=== PATIENT | male | born 1965 ===

== ENCOUNTER 2017-06-28 11:46 | Emergency (ER) | payer OTHER ==
[2017-06-28 11:46] VITALS: BMI 30.3
[2017-06-28 12:29] VITALS: BP 125/78; PULSE 58; RESP 16; TEMP 99; O2SAT 98
[2017-06-28] MEDS ORDERED: Sodium Chloride 0.9% 1,000 ML IV STA (12:58)
--- NOTE | 2017-06-28 14:01 | ED PDOC ---
HPI: Male Pain Time Seen by Provider: 06/28/17 12:42 Chief Complaint (Nursing): Male Genitourinary Chief Complaint (Provider): Hematuria History Per: Patient History/Exam Limitations: no limitations Onset/Duration Of Symptoms: Days (x2 weeks) Current Symptoms Are (Timing): Still Present Associated Symptoms: Back Pain (right lower), Other (right groin). denies: Fever, Chills, Urinary Symptoms (dysuria, urgency, frequency) Additional Complaint(s): Stew Still is a 52 year old male, with a past medical history of multiple kidney stones, HTN, diabetes and CHF, who presents to the emergency department complaining of painless hematuria onset for x2 weeks. Patient reports he was evaluated by his PMD, he had a CT scan done which showed a kidney stone on the right side. Patient was prescribed "7 medications" but doesn't know what they are just that he's taking them to help pass the stone. Patient states for the past week he developed right groin and right lower back pain. He reports pain is minimal, and the persistence of hematuria prompted ED visit. He denies any flank pain, dysuria, urgency, frequency, fever, chills or abdominal pain. No further medical complaints. PMD: None provided. Past Medical History Reviewed: Historical Data, Nursing Documentation, Vital Signs Vital Signs: Last Vital Signs Temp 99 F 06/28/17 12:26 Pulse 58 L 06/28/17 12:26 Resp 16 06/28/17 12:26 BP 125/78 06/28/17 12:26 Pulse Ox 98 06/28/17 12:26 - Medical History PMH: CAD, CHF (EF 41%), Diabetes, HTN, Hypercholesterolemia, Kidney Stones (S/P Trasnurethral Removal), Chronic Kidney Disease Denies: HIV - Surgical History Surgical History: Coronary Stent (2 placed in around June 2014) Denies: Pacemaker - Family History Family History: States: No Known Family Hx - Home Medications Home Medications: Ambulatory Orders Medication Instructions Recorded Insulin Detemir [Levemir Flexpen] 18 unit SC BID 06/19/14 Clopidogrel [Plavix] 75 mg PO DAILY 07/11/14 Atorvastatin [Lipitor] 20 mg PO DAILY #0 tab 09/01/14 Metoprolol Succinate [Toprol XL] 25 mg PO DAILY #0 tab 09/01/14 Aspirin [Aspirin EC] 81 mg PO DAILY 12/22/14 Canagliflozin/Metformin HCl 1 tab PO BID 10/06/15 [Invokamet 50-1,000 mg Tablet] Cyclobenzaprine [Cyclobenzaprine 10 mg PO TID PRN #12 tab 11/18/16 HCl] Ciprofloxacin [Cipro] 500 mg PO BID #14 tab 06/28/17 Tamsulosin [Flomax] 0.4 mg PO DAILY #7 cap 06/28/17 - Allergies Allergies/Adverse Reactions: Allergies Allergy/AdvReac Type Severity Reaction Status Date / Time No Known Allergies Allergy Verified 06/28/17 12:25 Review of Systems ROS Statement: Except As Marked, All Systems Reviewed And Found Negative Constitutional: Negative for: Fever, Chills Gastrointestinal: Negative for: Abdominal Pain Genitourinary Male: Positive for: Hematuria, Other (right groin pain). Negative for: Dysuria, Frequency, Incontinence Musculoskeletal: Positive for: Back Pain (lower). Negative for: Other (flank pain) Physical Exam - Reviewed Nursing Documentation Reviewed: Yes Vital Signs Reviewed: Yes - Physical Exam Appears: Positive for: Non-toxic, No Acute Distress Head Exam: Positive for: ATRAUMATIC, NORMAL INSPECTION, NORMOCEPHALIC Skin: Positive for: Normal Color, Warm, Dry Eye Exam: Positive for: Normal appearance Neck: Positive for: Painless ROM, Supple Cardiovascular/Chest: Positive for: Regular Rate, Rhythm. Negative for: Murmur Respiratory: Positive for: Normal Breath Sounds. Negative for: Respiratory Distress Gastrointestinal/Abdominal: Positive for: Normal Exam, Soft. Negative for: Tenderness (to deep palpation), Rebound Back: Positive for: Normal Inspection. Negative for: L CVA Tenderness, R CVA Tenderness Extremity: Positive for: Normal ROM (upper and lower extremities). Negative for : Deformity, Swelling Neurologic/Psych: Positive for: Alert, Oriented. Negative for: Motor/Sensory Deficits - Laboratory Results Result Diagrams: 06/28/17 14:57 06/28/17 14:57 - ECG O2 Sat by Pulse Oximetry: 98 (RA) Pulse Ox Interpretation: Normal Medical Decision Making Medical Decision Making: Initial Impression: Hematuria Initial Plan: --CMP --CBC w/ differential --PTT --PT --Sodium Chloride 1,000 ml IV 1,000 mls/hr --Blood culture --Urine C&S --KUB [Abdomen (Flat Plate) 1view] [RAD] --Urinalysis --Renal [US] --Reevaluation 06/02/2017 Abdomen/Pelvis CT FINDINGS: LOWER THORAX: Unremarkable. LIVER: Unremarkable. No gross lesion or ductal dilatation. GALLBLADDER AND BILE DUCTS: Unremarkable. PANCREAS: Unremarkable. No gross lesion or ductal dilatation. SPLEEN: Unremarkable. ADRENALS: Bilateral moderate renal hypertrophy again evident, not significantly changed. KIDNEYS AND URETERS: No obstructive uropathy is identified bilaterally with nonspecific limited streaky perinephric changes again evident bilaterally. A nonobstructive intrarenal calculus is slightly larger at the lower pole right kidney now measures 6.6 cm greatest dimension compared to 6.0 cm previously. An interval punctate midpole left intrarenal calculus identified, also nonobstructive. VASCULATURE: A retro aortic left renal vein again evident. BOWEL: Lack of oral contrast limits evaluation of the gastrointestinal tract with the stomach decompressed. No bowel obstruction is appreciated. Moderate fecal loading seen throughout the majority colon with left colonic diverticular changes again identified, concentrated at the sigmoid segment, without diverticulitis pattern evident. APPENDIX: Unremarkable. Normal appendix. PERITONEUM: Unremarkable. No free fluid. No free air. LYMPH NODES: Unremarkable. No enlarged lymph nodes. BLADDER: Unremarkable. REPRODUCTIVE: Enlarged prostate gland is again evident with central calcifications. BONES: No acute fracture. OTHER FINDINGS: None. IMPRESSION: No obstructive uropathy is identified bilaterally although a 6.6 mm intrarenal calculus is identified at the lower pole right kidney slightly larger in the interval with a new punctate intrarenal calculus identified at the midpole left kidney. Both are nonobstructive. Stable low nonspecific limited perinephric streaky changes reiterated. Lack of contrast agents limits further evaluation of the abdominal and pelvic viscera however no definitive acute abdominal findings are otherwise evident at this time. Sigmoid diverticular changes are stable with limited descending colonic diverticular changes also evident once again. Bilateral adrenal hypertrophy again evident. 13:45 -Case discussed with Dr. Mackay, who reviewed CT scans from 06/02/17 and recommends KUB and to contact patient's urologist. 14:43 Renal Ultrasound FINDINGS: RIGHT KIDNEY: Measures: 12.9 cm. Normal in size, contour and echogenicity. There is a 5 x 9 mm stone in the right proximal ureter, mild hydronephrosis and mild dilatation of the proximal ureter. LEFT KIDNEY: Measures: 12.9 cm. Normal in size, contour and echogenicity. There is a 1.4 x 1.0 x 1.5 cm hypoechoic nodule in the upper pole. There is a 7 mm cyst with peripheral calcification in the upper pole and 1.4 cm cyst with eccentric calcification in the interpolar region. There is a presumable 4 mm nonobstructing stone in the interpolar region. OTHER FINDINGS: None. IMPRESSION: 1. 5 x 9 mm stone in the right proximal ureter and mild hydronephrosis and proximal ureteral dilatation. 2. 1.5 cm solid nodule in the upper pole of the left kidney. A dedicated CT scan of the abdomen without and with intravenous contrast with renal protocol is recommended for definitive evaluation. 3. Complicated cyst in the left kidney. 4. Presumable 4 mm nonobstructing stone in the interpolar region of the left kidney. 14:49 Abdomen Flat Plate FINDINGS: The lungs are well inflated and clear. The heart is normal in size. There is a 5 x 6 mm calcification in the right paravertebral region just superior to the right transverse process of L3 vertebral body. BOWEL: Normal. No obstruction. No free air. BONES: Normal. OTHER FINDINGS: None. IMPRESSION: 5 x 6 mm stone in the right proximal ureter. 1539 On re-evaluation, pt. in no distress. Non-toxic. Comfortable and relaxing. Case d/w Michael Victoria NP, pt's primary care provider, who knows pt. very well. Informed of radiologic and lab results. States he will f/u with patient tomorrow. Offered to call urology consult but states his office will set up urology appointment when he visits their office tomorrow. Pt. informed of results and plan and told that stone will not likely pass on its own but he is to f/u with his PCP tomorrow without fail. Pt. agrees to plan and states he will f/u with Julien. D/W Dr. Mackay prior to discharge. ~ Scribe Attestation: Documented by Angel Medrano, acting as a scribe for Anmol Dent PA-C. Provider Scribe Attestation: All medical record entries made by the Scribe were at my direction and personally dictated by me. I have reviewed the chart and agree that the record accurately reflects my personal performance of the history, physical exam, medical decision making, and the department course for this patient. I have also personally directed, reviewed, and agree with the discharge instructions and disposition. Disposition - Clinical Impression Clinical Impression: Nephrolithiasis - Patient ED Disposition Is Patient to be Admitted: No - Disposition Referrals: Omar Chiu [Outside] Michael Victoria, ANN MARIE, TELEMEDICINE PHYSICIAN [Advanced Practice Nurse] - Disposition: Routine/Home Disposition Time: 15:44 Condition: STABLE Additional Instructions: Follow up with Julien's office tomorrow without fail. Return to ED immediately if symptoms worsen. Prescriptions: Ciprofloxacin [Cipro] 500 mg PO BID #14 tab Tamsulosin [Flomax] 0.4 mg PO DAILY #7 cap Instructions: Kidney Stones in Adults Forms: [employer] ([place]), [facility] ED School/Work Excuse Print Language: LUX[place]
--- NOTE | 2017-06-28 14:45 | US ---
PROCEDURE: Ultrasound of the Kidneys HISTORY: R lower back pain, hematuria COMPARISON: CT abdomen and pelvis from 06/02/2017 TECHNIQUE: Grayscale imaging was performed. FINDINGS: RIGHT KIDNEY: Measures: 12.9 cm. Normal in size, contour and echogenicity. There is a 5 x 9 mm stone in the right proximal ureter, mild hydronephrosis and mild dilatation of the proximal ureter. LEFT KIDNEY: Measures: 12.9 cm. Normal in size, contour and echogenicity. There is a 1.4 x 1.0 x 1.5 cm hypoechoic nodule in the upper pole. There is a 7 mm cyst with peripheral calcification in the upper pole and 1.4 cm cyst with eccentric calcification in the interpolar region. There is a presumable 4 mm nonobstructing stone in the interpolar region. OTHER FINDINGS: None. IMPRESSION: 1. 5 x 9 mm stone in the right proximal ureter and mild hydronephrosis and proximal ureteral dilatation. 2. 1.5 cm solid nodule in the upper pole of the left kidney. A dedicated CT scan of the abdomen without and with intravenous contrast with renal protocol is recommended for definitive evaluation. 3. Complicated cyst in the left kidney. 4. Presumable 4 mm nonobstructing stone in the interpolar region of the left kidney.
--- NOTE | 2017-06-28 14:51 | RAD ---
HISTORY: kidney stones COMPARISON: CT abdomen and pelvis from 06/02/2017. FINDINGS: The lungs are well inflated and clear. The heart is normal in size. There is a 5 x 6 mm calcification in the right paravertebral region just superior to the right transverse process of L3 vertebral body. BOWEL: Normal. No obstruction. No free air. BONES: Normal. OTHER FINDINGS: None. IMPRESSION: 5 x 6 mm stone in the right proximal ureter.
[2017-06-28 14:54] LABS: URINE BILIRUBIN NEGATIVE (NEGATIVE); URINE BLOOD MODERATE (NEGATIVE); URINE CLARITY CLOUDY (Clear); URINE COLOR RED (YELLOW); URINE GLUCOSE (UA) >=500 mg/dL (Normal); URINE LEUKOCYTE ESTERASE NEG Leu/uL (Negative); URINE PROTEIN 100 mg/dL (NEGATIVE); URINE UROBILINOGEN 0.2-1.0 mg/dL (0.2-1.0)
[2017-06-28 15:18] LABS: BASO % 0.9 % (0.0-2.0); EOS # 0.2 K/uL (0.0-0.7); EOS % 3.9 % (0.0-4.0); HEMOGLOBIN 15.5 g/dL (12.0-18.0); LYMPH # 2.2 K/uL (1.0-4.3); LYMPH % 41.2 % (20.0-40.0); MEAN CELL VOLUME 88.9 fl (80.0-94.0); MEAN CORPUSCULAR HEMOGLOBIN 29.4 pg (27.0-31.0); MEAN CORPUSCULAR HGB CONC 33.1 g/dL (33.0-37.0); MONO # 0.5 K/uL (0.0-0.8); MONO % 9.4 % (0.0-10.0); NEUT # 2.4 K/uL (1.8-7.0); NEUT % 44.6 % (50.0-75.0); NRBC % 0.1 % (0.0-0.0); RBC 5.28 Mil/uL (4.40-5.90); RED CELL DISTRIBUTION WIDTH 13.9 % (11.5-14.5); WHITE BLOOD COUNT 5.4 K/uL (4.8-10.8)
[2017-06-28 15:21] LABS: ALB/GLOB RATIO 1.2 (1.0-2.1); ALBUMIN 4.4 g/dL (3.5-5.0); ALT/SGPT 42 U/L (21-72); AST/SGOT 28 U/L (17-59); BLOOD UREA NITROGEN 16 mg/dl (9-20); CALCIUM 9.8 mg/dL (8.4-10.2); GFR AFRICAN-AMERICAN > 60; GFR NON-AFRICAN AMERICAN > 60
[2017-06-28 15:29] LABS: PARTIAL THROMBOPLASTIN TIME 33.5 Seconds (25.6-37.1); PROTHROMBIN TIME 10.9 Seconds (9.8-13.1)
== END 2017-06-28 15:53 | disposition home or self-care (01) ==
LOC: H.ER 11:46
DX: N20.2 Calculus of kidney with calculus of ureter (principal); E78.00 Pure hypercholesterolemia, unspecified; I13.0 Hypertensive heart and chronic kidney disease with heart failure and stage 1 through stage 4 chronic kidney disease, or unspecified chronic kidney disease; I25.10 Atherosclerotic heart disease of native coronary artery without angina pectoris; Z79.4 Long term (current) use of insulin; Z79.82 Long term (current) use of aspirin; Z95.5 Presence of coronary angioplasty implant and graft; N28.1 Cyst of kidney, acquired
CPT/HCPCS: 74018; 74022; 76770; 80053; 81003; 85025; 85610; 85730; 87040; 87086; 96360; 96361; 99283; J7040

== ENCOUNTER 2017-06-29 08:37 | Observation (INO) | payer OTHER ==
[2017-06-29 08:38] VITALS: BMI 30.3
[2017-06-29] MEDS ORDERED: Sodium Chloride 0.9% 1,000 ML IV STA (08:57)
--- NOTE | 2017-06-29 08:59 | ED PDOC ---
HPI: Male Pain Time Seen by Provider: 06/29/17 08:41 Chief Complaint (Nursing): Male Genitourinary Chief Complaint (Provider): Right flank pain History Per: Patient History/Exam Limitations: no limitations Onset/Duration Of Symptoms: Days Current Symptoms Are (Timing): Still Present Associated Symptoms: Other (hematuria) Additional Complaint(s): Stew Still is a 52 year old male, with a past medical history of a right sided kidney stone 6-7mm, who presents to the emergency department for right flank pain associated with gross hematuria. Patient was seen in the ED yesterday for the same symptoms. He denies any fever, chills or other medical complaints. PMD: None provided. Past Medical History Reviewed: Historical Data, Nursing Documentation, Vital Signs Vital Signs: Last Vital Signs Temp 97.5 F L 06/29/17 08:41 Pulse 50 L 06/29/17 08:41 Resp 20 06/29/17 08:41 BP 164/92 H 06/29/17 08:41 Pulse Ox 100 06/29/17 08:41 - Medical History PMH: CAD, CHF (EF 41%), Diabetes, HTN, Hypercholesterolemia, Kidney Stones (S/P Trasnurethral Removal), Chronic Kidney Disease Denies: HIV - Surgical History Surgical History: Coronary Stent (2 placed in around June 2014) Denies: Pacemaker - Family History Family History: States: No Known Family Hx - Social History Current smoker - smoking cessation education provided: No Alcohol: None Drugs: Denies - Home Medications Home Medications: Ambulatory Orders Medication Instructions Recorded Aspirin [Aspirin] 325 mg PO DAILY 06/29/17 Atorvastatin [Lipitor] 20 mg PO HS 06/29/17 Canagliflozin/Metformin HCl 1 tab PO BID 06/29/17 [Invokamet 50-1,000 mg Tablet] Insulin Glargine, Recombina 19 unit SC Q12 06/29/17 [Lantus] Metoprolol Succinate [Toprol XL] 25 mg PO DAILY 06/29/17 - Allergies Allergies/Adverse Reactions: Allergies Allergy/AdvReac Type Severity Reaction Status Date / Time No Known Allergies Allergy Verified 06/29/17 08:53 Review of Systems ROS Statement: Except As Marked, All Systems Reviewed And Found Negative Constitutional: Negative for: Fever, Chills Genitourinary Male: Positive for: Hematuria Musculoskeletal: Positive for: Back Pain (right flank) Physical Exam - Reviewed Nursing Documentation Reviewed: Yes Vital Signs Reviewed: Yes - Physical Exam Appears: Positive for: Non-toxic, No Acute Distress Head Exam: Positive for: ATRAUMATIC, NORMAL INSPECTION, NORMOCEPHALIC Skin: Positive for: Normal Color, Warm, Dry Eye Exam: Positive for: Normal appearance Neck: Positive for: Painless ROM Cardiovascular/Chest: Positive for: Regular Rate, Rhythm. Negative for: Murmur Respiratory: Positive for: Normal Breath Sounds. Negative for: Respiratory Distress Gastrointestinal/Abdominal: Positive for: Normal Exam, Soft. Negative for: Tenderness Back: Positive for: R CVA Tenderness (mild) Extremity: Positive for: Normal ROM (on all extremities). Negative for: Deformity, Swelling Neurologic/Psych: Positive for: Alert, Oriented - Laboratory Results Result Diagrams: 06/29/17 09:10 06/29/17 09:10 - ECG O2 Sat by Pulse Oximetry: 100 (RA) Pulse Ox Interpretation: Normal Medical Decision Making Medical Decision Making: Initial Plan: --EKG --CMP --CBC w/ differential --PTT --Chest two views (PA/LAT) [RAD] --Sodium Chloride 1,000 ml IV 100 mls/hr --Toradol 30 mg IVP --Urinalysis --Reevaluation Scribe Attestation: Documented by Angel Medrano, acting as a scribe for Manan Pike MD Provider Scribe Attestation: All medical record entries made by the Scribe were at my direction and personally dictated by me. I have reviewed the chart and agree that the record accurately reflects my personal performance of the history, physical exam, medical decision making, and the department course for this patient. I have also personally directed, reviewed, and agree with the discharge instructions and disposition. Disposition - Clinical Impression Clinical Impression: Kidney stone - Patient ED Disposition Is Patient to be Admitted: Yes - Disposition Disposition Time: 10:45 Condition: FAIR - Pt Status Changed To: Hospital Disposition Of: Observation - POA Present On Arrival: None
[2017-06-29 09:38] LABS: BASO % 0.7 % (0.0-2.0); EOS # 0.3 K/uL (0.0-0.7); EOS % 6.9 % (0.0-4.0); HEMOGLOBIN 15.6 g/dL (12.0-18.0); LYMPH # 2.1 K/uL (1.0-4.3); LYMPH % 44.8 % (20.0-40.0); MEAN CELL VOLUME 88.8 fl (80.0-94.0); MEAN CORPUSCULAR HEMOGLOBIN 29.8 pg (27.0-31.0); MEAN CORPUSCULAR HGB CONC 33.5 g/dL (33.0-37.0); MEAN PLATELET VOLUME 9.1 fl (7.2-11.7); MONO # 0.5 K/uL (0.0-0.8); MONO % 10.4 % (0.0-10.0); NEUT # 1.8 K/uL (1.8-7.0); NEUT % 37.2 % (50.0-75.0); RBC 5.25 Mil/uL (4.40-5.90); RED CELL DISTRIBUTION WIDTH 14.2 % (11.5-14.5); WHITE BLOOD COUNT 4.8 K/uL (4.8-10.8)
[2017-06-29 09:44] LABS: PROTHROMBIN TIME 11.3 Seconds (9.8-13.1)
[2017-06-29 09:54] LABS: ALB/GLOB RATIO 1.1 (1.0-2.1); ALBUMIN 4.2 g/dL (3.5-5.0); ALT/SGPT 41 U/L (21-72); AST/SGOT 28 U/L (17-59); BLOOD UREA NITROGEN 15 mg/dl (9-20); CALCIUM 9.3 mg/dL (8.4-10.2); GFR AFRICAN-AMERICAN > 60; GFR NON-AFRICAN AMERICAN > 60
[2017-06-29] MEDS ORDERED: METFORMIN HCL PO SCH (17:00)
[2017-06-29] MEDS ORDERED: CANAGLIFLOZIN PO SCH (17:00)
[2017-06-29] MEDS: Insulin Detemir 100 Units/ml Inj SC SCH (17:07)
--- NOTE | 2017-06-29 17:18 | CARD ---
APPROVED REPORT EKG Measurement Heart [id number] <Conclusion> Sinus bradycardia Left axis deviation Inferior-posterior infarct, age undetermined Abnormal ECG
[2017-06-29] MEDS: Sodium Chloride 0.9% 1,000 ML IV SCH (21:53)
[2017-06-29 21:59] LABS: SQUAMOUS EPITHIAL < 1 /hpf (0-5); URINE BACTERIA RARE (<OCC); URINE BILIRUBIN NEGATIVE (NEGATIVE); URINE BLOOD LARGE (NEGATIVE); URINE CLARITY SLIGHTY-CLOUDY (Clear); URINE COLOR YELLOW (YELLOW); URINE GLUCOSE (UA) >=500 mg/dL (Normal); URINE LEUKOCYTE ESTERASE NEG Leu/uL (Negative); URINE PROTEIN 30 mg/dL (NEGATIVE); URINE UROBILINOGEN 0.2-1.0 mg/dL (0.2-1.0)
[2017-06-30 06:13] LABS: BASO % 0.8 % (0.0-2.0); EOS # 0.2 K/uL (0.0-0.7); EOS % 4.8 % (0.0-4.0); HEMOGLOBIN 14.9 g/dL (12.0-18.0); LYMPH # 1.7 K/uL (1.0-4.3); LYMPH % 36.1 % (20.0-40.0); MEAN CELL VOLUME 89.3 fl (80.0-94.0); MEAN CORPUSCULAR HGB CONC 33.6 g/dL (33.0-37.0); MEAN PLATELET VOLUME 9.5 fl (7.2-11.7); MONO # 0.5 K/uL (0.0-0.8); MONO % 10.4 % (0.0-10.0); NEUT # 2.2 K/uL (1.8-7.0); NEUT % 47.9 % (50.0-75.0); NRBC % 0.1 % (0.0-0.0); RBC 4.95 Mil/uL (4.40-5.90); RED CELL DISTRIBUTION WIDTH 14.4 % (11.5-14.5); WHITE BLOOD COUNT 4.6 K/uL (4.8-10.8)
[2017-06-30] MEDS: Sodium Chloride 0.9% 1,000 ML IV SCH (06:24)
[2017-06-30 07:06] LABS: ALB/GLOB RATIO 1.1 (1.0-2.1); ALBUMIN 3.9 g/dL (3.5-5.0); ALT/SGPT 31 U/L (21-72); AST/SGOT 39 U/L (17-59); BLOOD UREA NITROGEN 15 mg/dl (9-20); GFR AFRICAN-AMERICAN > 60; GFR NON-AFRICAN AMERICAN > 60
[2017-06-30] MEDS ORDERED: Propofol 10 mg/ml Inj (20 ML) ONE (08:38)
[2017-06-30] MEDS ORDERED: Succinylcholine 200 mg/10 ml Inj IV ONE (08:38)
[2017-06-30] MEDS ORDERED: Midazolam 2 MG/2 ML VIAL ONE (08:38)
[2017-06-30] MEDS: Lactated Ringer's 1,000 ML IV ONE ×2 (08:45→09:55)
[2017-06-30] MEDS ORDERED: Metoprolol Succinate 25 mg XL Tab PO SCH (09:00)
--- NOTE | 2017-06-30 09:13 | CP.PCM.HP ---
History of Present Illness - History of Present Illness History of Present Illness: ptadmitted for worsening hematuria r/t left kidney stone approx 6-7mm. no f/c, n /v/s.bw nad urine noted. pt is for stent today and has been npo. no h/o anesthesia, breathing/bleeding problems Present on Admission - Present on Admission Any Indicators Present on Admission: Yes History of Uncontrolled Diabetes: Yes Review of Systems - Genitourinary Genitourinary: As Per HPI, Flank Pain, Hematuria Past Patient History - Infectious Disease Hx of Infectious Diseases: None - Tetanus Immunizations Tetanus Immunization: Unknown - Past Medical History & Family History Past Medical History?: Yes - Past Social History Alcohol: None Drugs: Denies - CARDIAC Hx Congestive Heart Failure: Yes (EF 41%) Hx Hypercholesterolemia: Yes Hx Hypertension: Yes Hx Pacemaker: No - PULMONARY Hx Respiratory Disorders: No - NEUROLOGICAL Hx Paralysis: No - HEENT Hx HEENT Problems: No - RENAL Hx Chronic Kidney Disease: Yes Hx Kidney Stones: Yes (S/P Trasnurethral Removal) - ENDOCRINE/METABOLIC Hx Endocrine Disorders: Yes (DM) - HEMATOLOGICAL/ONCOLOGICAL Hx Human Immunodeficiency Virus (HIV): No - INTEGUMENTARY Hx Dermatological Problems: No - MUSCULOSKELETAL/RHEUMATOLOGICAL Hx Falls: No - GASTROINTESTINAL Hx Gastrointestinal Disorders: No - GENITOURINARY/GYNECOLOGICAL Hx Genitourinary Disorders: No - PSYCHIATRIC Hx Substance Use: No - SURGICAL HISTORY Hx Coronary Stent: Yes (2 placed in around June 2014) - ANESTHESIA Hx Anesthesia: Yes Hx Anesthesia Reactions: No Hx Malignant Hyperthermia: No Meds Home Medications: Home Medication List Medication Instructions Recorded Confirmed Type Tamsulosin [Flomax] 0.4 mg PO DAILY #7 cap 06/30/17 Rx oxyCODONE/Acetaminophen [Percocet 1 tab PO Q6 PRN #10 tab 06/30/17 Rx 5/325 mg Tab] Allergies/Adverse Reactions: Allergies Allergy/AdvReac Type Severity Reaction Status Date / Time No Known Allergies Allergy Verified 06/29/17 08:53 Physical Exam - Constitutional Appears: Well, Non-toxic, No Acute Distress - Head Exam Head Exam: ATRAUMATIC, NORMAL INSPECTION, NORMOCEPHALIC - Eye Exam Eye Exam: EOMI, Normal appearance, PERRL Pupil Exam: NORMAL ACCOMODATION, PERRL - ENT Exam ENT Exam: Mucous Membranes Moist, Normal Exam - Neck Exam Neck exam: Positive for: Normal Inspection - Respiratory Exam Respiratory Exam: Clear to Auscultation Bilateral, NORMAL BREATHING PATTERN - Cardiovascular Exam Cardiovascular Exam: REGULAR RHYTHM, RRR, +S1, +S2 - GI/Abdominal Exam GI & Abdominal Exam: Normal Bowel Sounds, Soft. absent: Tenderness - Extremities Exam Extremities exam: Positive for: full ROM, normal capillary refill, normal inspection, pedal pulses present - Back Exam Back exam: NORMAL INSPECTION - Neurological Exam Neurological exam: Alert, CN II-XII Intact, Normal Gait, Oriented x3, Reflexes Normal - Psychiatric Exam Psychiatric exam: Normal Affect, Normal Mood - Skin Skin Exam: Dry, Intact, Normal Color, Warm Results - Vital Signs Recent Vital Signs: Last Vital Signs Temp 98.4 F 06/30/17 09:00 Pulse 61 06/30/17 09:00 Resp 18 06/30/17 09:00 BP 121/73 06/30/17 09:00 Pulse Ox 98 06/30/17 09:00 - Labs Result Diagrams: 06/30/17 05:57 06/30/17 05:57 Labs: Laboratory Results - last 24 hr 06/29/17 06/29/17 06/29/17 09:10 09:10 09:10 WBC 4.8 RBC 5.25 Hgb 15.6 Hct 46.6 MCV 88.8 MCH 29.8 MCHC 33.5 RDW 14.2 Plt Count 225 MPV 9.1 Neut % (Auto) 37.2 L Lymph % (Auto) 44.8 H Clare % (Auto) 10.4 H Eos % (Auto) 6.9 H Baso % (Auto) 0.7 Neut # (Auto) 1.8 Lymph # (Auto) 2.1 Clare # (Auto) 0.5 Eos # (Auto) 0.3 Baso # (Auto) 0.0 PT 11.3 INR 1.0 Sodium 143 Potassium 4.6 Chloride 100 Carbon Dioxide 28 Anion Gap 20 BUN 15 Creatinine 0.8 Est GFR ( Amer) > 60 Est GFR (Non-Af Amer) > 60 POC Glucose (mg/dL) Random Glucose 183 H Calcium 9.3 Total Bilirubin 0.5 AST 28 ALT 41 Alkaline Phosphatase 93 Total Protein 8.0 Albumin 4.2 Globulin 3.9 Albumin/Globulin Ratio 1.1 Urine Color Urine Clarity Urine pH Ur Specific [place] Urine Protein Urine Glucose (UA) Urine Ketones Urine Blood Urine Nitrate Urine Bilirubin Urine Urobilinogen Ur Leukocyte Esterase Urine RBC (Auto) Urine Microscopic WBC Ur Squamous Epith Cells Urine Bacteria 06/29/17 06/29/17 06/29/17 12:50 16:24 21:20 WBC RBC Hgb Hct MCV MCH MCHC RDW Plt Count MPV Neut % (Auto) Lymph % (Auto) Clare % (Auto) Eos % (Auto) Baso % (Auto) Neut # (Auto) Lymph # (Auto) Clare # (Auto) Eos # (Auto) Baso # (Auto) PT INR Sodium Potassium Chloride Carbon Dioxide Anion Gap BUN Creatinine Est GFR ( Amer) Est GFR (Non-Af Amer) POC Glucose (mg/dL) 178 H 121 H Random Glucose Calcium Total Bilirubin AST ALT Alkaline Phosphatase Total Protein Albumin Globulin Albumin/Globulin Ratio Urine Color Yellow Urine Clarity Slighty-cloudy Urine pH 6.0 Ur Specific [place] 1.025 Urine Protein 30 Urine Glucose (UA) >=500 Urine Ketones Negative Urine Blood Large Urine Nitrate Negative Urine Bilirubin Negative Urine Urobilinogen 0.2-1.0 Ur Leukocyte Esterase Neg Urine RBC (Auto) 11 H Urine Microscopic WBC 3 Ur Squamous Epith Cells < 1 Urine Bacteria Rare 06/29/17 06/30/17 06/30/17 22:06 05:27 05:57 WBC 4.6 L RBC 4.95 Hgb 14.9 Hct 44.3 MCV 89.3 MCH 30.0 MCHC 33.6 RDW 14.4 Plt Count 207 MPV 9.5 Neut % (Auto) 47.9 L Lymph % (Auto) 36.1 Clare % (Auto) 10.4 H Eos % (Auto) 4.8 H Baso % (Auto) 0.8 Neut # (Auto) 2.2 Lymph # (Auto) 1.7 Clare # (Auto) 0.5 Eos # (Auto) 0.2 Baso # (Auto) 0.0 PT INR Sodium Potassium Chloride Carbon Dioxide Anion Gap BUN Creatinine Est GFR ( Amer) Est GFR (Non-Af Amer) POC Glucose (mg/dL) 151 H 155 H Random Glucose Calcium Total Bilirubin AST ALT Alkaline Phosphatase Total Protein Albumin Globulin Albumin/Globulin Ratio Urine Color Urine Clarity Urine pH Ur Specific [place] Urine Protein Urine Glucose (UA) Urine Ketones Urine Blood Urine Nitrate Urine Bilirubin Urine Urobilinogen Ur Leukocyte Esterase Urine RBC (Auto) Urine Microscopic WBC Ur Squamous Epith Cells Urine Bacteria 06/30/17 05:57 WBC RBC Hgb Hct MCV MCH MCHC RDW Plt Count MPV Neut % (Auto) Lymph % (Auto) Clare % (Auto) Eos % (Auto) Baso % (Auto) Neut # (Auto) Lymph # (Auto) Clare # (Auto) Eos # (Auto) Baso # (Auto) PT INR Sodium 144 Potassium 4.5 Chloride 107 Carbon Dioxide 24 Anion Gap 18 BUN 15 Creatinine 0.8 Est GFR ( Amer) > 60 Est GFR (Non-Af Amer) > 60 POC Glucose (mg/dL) Random Glucose 163 H Calcium 9.0 Total Bilirubin 0.4 AST 39 ALT 31 Alkaline Phosphatase 79 Total Protein 7.5 Albumin 3.9 Globulin 3.6 Albumin/Globulin Ratio 1.1 Urine Color Urine Clarity Urine pH Ur Specific [place] Urine Protein Urine Glucose (UA) Urine Ketones Urine Blood Urine Nitrate Urine Bilirubin Urine Urobilinogen Ur Leukocyte Esterase Urine RBC (Auto) Urine Microscopic WBC Ur Squamous Epith Cells Urine Bacteria Assessment & Plan (1) DVT prophylaxis Assessment and Plan: scd nad aehose ambulation no anticoag r/t surgery Status: Acute (2) Diabetes type 2, uncontrolled Assessment and Plan: fsbg, home meds diet Status: Acute (3) Kidney stone Assessment and Plan: philipp uro for stent today at 1130, npo p mignight likely dc later today pain control. Status: Acute Decision To Admit - Pt Status Changed To: Hospital Disposition Of: Observation - . Bed Request Type: Med/Surg Admitting Physician: Kenneth Wiggins
[2017-06-30] MEDS ORDERED: cefTRIAXone (Rocephin) 1 gm Inj IM ONE (09:15)
[2017-06-30] MEDS ORDERED: cefTRIAXone (Rocephin) 1 gm Inj ONE (09:18)
[2017-06-30] MEDS ORDERED: Lidocaine 2% Jelly (Uro-Jet) ONE (09:18)
[2017-06-30] MEDS ORDERED: Lidocaine 2% Jelly (Uro-Jet) TOP ONE (09:29)
--- NOTE | 2017-06-30 10:47 | OP ---
PROCEDURE DATE: 06/30/2017 PREOPERATIVE DIAGNOSIS: Right obstructing ureteral calculous. POSTOPERATIVE DIAGNOSIS: Right obstructing ureteral calculous. PROCEDURE PERFORMED: Cystoscopy with insertion of a double-J stent. DESCRIPTION OF PROCEDURE: The patient was placed on the operating table in dorsal lithotomy position. Under general anesthesia, the area of the groin was and prepped in a sterile manner. Using a #21 cystoscope, I entered into the bladder atraumatically, identified the right ureteral orifice, I inserted a flexible guidewire through this area, it bypassed the stone went into the renal pelvis following this under fluoroscopy, double-J in good place. Once this was done then the patient was taken from the operating room in good condition. Julianna Albert MD
[2017-06-30] MEDS: Insulin Detemir 100 Units/ml Inj SC SCH ×2 (10:51→11:37)
--- NOTE | 2017-06-30 10:52 | CON ---
HISTORY OF PRESENT ILLNESS: This is a gentleman who was seen and admitted through the emergency room on 06/29/2017 because of acute right renal colic. This is the fourth episode of renal colic for this patient in the past several years. Prior stones needed to be manipulated to have them removed. The patient also when he was in the emergency room had gross hematuria. The patient has cardiac history including cardiac stenting in 2014 and he has been on Plavix and aspirin on a daily basis. The patient has a significant pain level on the right. CAT scan done on a recent prior ER visit one week prior shows approximately 8-mm proximal right ureteral calculus with obstruction and this is the same stone that has become the current renal colic that he has. At this time, the patient will be scheduled for cystoscopy with J-stent placement after which he needs to be off aspirin and Plavix to be able to be scheduled for lithotripsy that we will discuss with the patient after the stent is placed. Julianna Albert MD
[2017-06-30 13:23] VITALS: O2SAT 99
[2017-06-30 14:17] VITALS: BP 135/81; PULSE 61; RESP 18; TEMP 98
--- NOTE | 2017-06-30 18:23 | CP.PCM.DIS ---
Provider - Provider Date of Admission: 06/29/17 08:59 Attending physician: Kenneth Wiggins MD Time Spent in preparation of Discharge (in minutes): 15 Diagnosis - Discharge Diagnosis (1) DVT prophylaxis Status: Acute (2) Diabetes type 2, uncontrolled Status: Acute (3) Kidney stone Status: Acute Hospital Course - Lab Results Lab Results: Most Recent Lab Values WBC 4.6 K/uL (4.8-10.8) L 06/30/17 05:57 RBC 4.95 Mil/uL (4.40-5.90) 06/30/17 05:57 Hgb 14.9 g/dL (12.0-18.0) 06/30/17 05:57 Hct 44.3 % (35.0-51.0) 06/30/17 05:57 MCV 89.3 fl (80.0-94.0) 06/30/17 05:57 MCH 30.0 pg (27.0-31.0) 06/30/17 05:57 MCHC 33.6 g/dL (33.0-37.0) 06/30/17 05:57 RDW 14.4 % (11.5-14.5) 06/30/17 05:57 Plt Count 207 K/uL (130-400) 06/30/17 05:57 MPV 9.5 fl (7.2-11.7) 06/30/17 05:57 Neut % (Auto) 47.9 % (50.0-75.0) L 06/30/17 05:57 Lymph % (Auto) 36.1 % (20.0-40.0) 06/30/17 05:57 Ray % (Auto) 10.4 % (0.0-10.0) H 06/30/17 05:57 Eos % (Auto) 4.8 % (0.0-4.0) H 06/30/17 05:57 Baso % (Auto) 0.8 % (0.0-2.0) 06/30/17 05:57 Neut # (Auto) 2.2 K/uL (1.8-7.0) 06/30/17 05:57 Lymph # (Auto) 1.7 K/uL (1.0-4.3) 06/30/17 05:57 Ray # (Auto) 0.5 K/uL (0.0-0.8) 06/30/17 05:57 Eos # (Auto) 0.2 K/uL (0.0-0.7) 06/30/17 05:57 Baso # (Auto) 0.0 K/uL (0.0-0.2) 06/30/17 05:57 PT 11.3 Seconds (9.8-13.1) 06/29/17 09:10 INR 1.0 (0.9-1.2) 06/29/17 09:10 Sodium 144 mmol/l (132-148) 06/30/17 05:57 Potassium 4.5 MMOL/L (3.6-5.0) 06/30/17 05:57 Chloride 107 mmol/L (98-107) 06/30/17 05:57 Carbon Dioxide 24 mmol/L (22-30) 06/30/17 05:57 Anion Gap 18 (10-20) 06/30/17 05:57 BUN 15 mg/dl (9-20) 06/30/17 05:57 Creatinine 0.8 mg/dl (0.8-1.5) 06/30/17 05:57 Est GFR ( Amer) > 60 06/30/17 05:57 Est GFR (Non-Af Amer) > 60 06/30/17 05:57 POC Glucose (mg/dL) 136 mg/dL (65-110) H 06/30/17 11:12 Random Glucose 163 mg/dL (75-110) H 06/30/17 05:57 Calcium 9.0 mg/dL (8.4-10.2) 06/30/17 05:57 Total Bilirubin 0.4 mg/dl (0.2-1.3) 06/30/17 05:57 AST 39 U/L (17-59) 06/30/17 05:57 ALT 31 U/L (21-72) 06/30/17 05:57 Alkaline Phosphatase 79 U/L (38-126) 06/30/17 05:57 Total Protein 7.5 G/DL (6.3-8.2) 06/30/17 05:57 Albumin 3.9 g/dL (3.5-5.0) 06/30/17 05:57 Globulin 3.6 gm/dL (2.2-3.9) 06/30/17 05:57 Albumin/Globulin Ratio 1.1 (1.0-2.1) 06/30/17 05:57 Urine Color Yellow (YELLOW) 06/29/17 21:20 Urine Clarity Slighty-cloudy (Clear) 06/29/17 21:20 Urine pH 6.0 (5.0-8.0) 06/29/17 21:20 Ur Specific [place] 1.025 (1.003-1.030) 06/29/17 21:20 Urine Protein 30 mg/dL (NEGATIVE) 06/29/17 21:20 Urine Glucose (UA) >=500 mg/dL (Normal) 06/29/17 21:20 Urine Ketones Negative mg/dL (NEGATIVE) 06/29/17 21:20 Urine Blood Large (NEGATIVE) 06/29/17 21:20 Urine Nitrate Negative (NEGATIVE) 06/29/17 21:20 Urine Bilirubin Negative (NEGATIVE) 06/29/17 21:20 Urine Urobilinogen 0.2-1.0 mg/dL (0.2-1.0) 06/29/17 21:20 Ur Leukocyte Esterase Neg Rusty/uL (Negative) 06/29/17 21:20 Urine RBC (Auto) 11 /hpf (0-3) H 06/29/17 21:20 Urine Microscopic WBC 3 /hpf (0-5) 06/29/17 21:20 Ur Squamous Epith Cells < 1 /hpf (0-5) 06/29/17 21:20 Urine Bacteria Rare (<OCC) 06/29/17 21:20 - Hospital Course Hospital Course: rocephin, dc cipro stent, ivf, urology Discharge Exam - Head Exam Head Exam: ATRAUMATIC, NORMAL INSPECTION, NORMOCEPHALIC Discharge Plan - Discharge Medications Prescriptions: Ciprofloxacin HCl [Cipro] 500 mg PO BID #10 tablet oxyCODONE/Acetaminophen [Percocet 5/325 mg Tab] 1 tab PO Q6 PRN #10 tab PRN Reason: Pain, Severe (8-10) Tamsulosin [Flomax] 0.4 mg PO DAILY #7 cap - Follow Up Plan Condition: FAIR Disposition: HOME/ ROUTINE Instructions: Kidney Stones in Adults, Cystoscopy (DC) Additional Instructions: final dx-nephrolithiasis cleared by uro for dc after stent placed dc on cipro f/u rmg, rted prn, meds per med rec hydration Referrals: Julianna Albert MD [Family Provider] - (f/u on Monday)
--- NOTE | 2017-07-03 15:32 | RAD ---
PROCEDURE: Intraoperative Fluoroscopy. HISTORY: CYSTO PROCEDURE FINDINGS: Fluoroscopic assistance was provided for cystogram. Please refer to the operative report from NILSA Fairchild.
== END 2017-06-30 14:20 | disposition home or self-care (01) ==
LOC: H.ER 08:37 → H.ERHOLD 08:59 → H.MEDSURG1 10:54
PROVIDERS: ADMIT Family Medicine; ATTEND Family Medicine
DX: N20.2 Calculus of kidney with calculus of ureter (principal); R31.0 Gross hematuria; E11.65 Type 2 diabetes mellitus with hyperglycemia; E11.22 Type 2 diabetes mellitus with diabetic chronic kidney disease; I25.10 Atherosclerotic heart disease of native coronary artery without angina pectoris; I13.0 Hypertensive heart and chronic kidney disease with heart failure and stage 1 through stage 4 chronic kidney disease, or unspecified chronic kidney disease; N18.9 Chronic kidney disease, unspecified; I50.9 Heart failure, unspecified; E78.00 Pure hypercholesterolemia, unspecified; Z87.442 Personal history of urinary calculi; Z95.5 Presence of coronary angioplasty implant and graft; Z79.82 Long term (current) use of aspirin
CPT/HCPCS: 36415; 52005; 76000; 80053; 81003; 82948; 85025; 85610; 93005; 96374; 99282; C2617; G0378; J0330; J0696; J1885; J2001; J2250; J2704; J2765; J3010; J7040; J7120